=== PATIENT | male | born 2000 | race Two or more races ===

== ENCOUNTER → 2021-10-26 | Outpatient (CLI) | payer SELFPAY ==
--- NOTE | 2021-10-27 09:59 | NUR ---
Notified Ladonna @ Dr Dow's office that patient is covid positive. Ladonna will notify Dr Victor M Payton's MA who is in the [facility] today.
== END ==
LOC: LAB 11:07
PROVIDERS: ATTEND Surgery
DX: U07.1 COVID-19 (principal)
CPT/HCPCS: U0003; U0005

== ENCOUNTER 2022-01-13 07:59 | Day surgery (SDC) | payer OTHER ==
[~2022-01-13] VITALS: Ht 170.2 cm; Wt 88.0 kg
[~2022-01-13 07:59] MED LIST: ACETAMINOPHEN 500 MG TABLET PO PRN; BUPIVACAINE-EPI 0.25% 30 ML VIAL KIT. ONE; HYDROmorphone 2 MG/ML INJ. IVP PRN; IV RINGERS,LACTATED 1000ML 1,000 ML IV SCH; MORPHINE SULFATE 2 MG/ML INJ. IVP PRN; PROCHLORPERAZINE 10 MG/2 ML VIAL. IVP PRN; fentaNYL PF VIAL 100 MCG/2 ML VIAL IVP PRN
[2022-01-13] MEDS ORDERED: ONDANSETRON PF 4 MG/2 ML VIAL. ONE (08:29)
[2022-01-13] MEDS ORDERED: fentaNYL PF VIAL 100 MCG/2 ML VIAL ONE (08:29)
[2022-01-13] MEDS ORDERED: LIDOCAINE 2% PF 5 ML VIAL. ONE (08:29)
[2022-01-13] MEDS ORDERED: PROPOFOL 10 MG/ML (20ML) VIAL. IV ONE (08:29)
[2022-01-13] MEDS ORDERED: FAMOTIDINE 20 MG/2 ML VIAL ONE (08:29)
[2022-01-13] MEDS ORDERED: DEXAMETHASONE SOD PHOS 4 MG/ML VIAL ONE (08:29)
[2022-01-13] MEDS ORDERED: MIDAZOLAM HCL/PF 2 MG/2 ML VIAL. ONE (08:29)
[2022-01-13] MEDS ORDERED: SUCCINYLCHOLINE 200 MG/10 ML VIAL. ONE (08:33)
[2022-01-13 08:37] VITALS: BP 135/74
--- NOTE | 2022-01-13 09:06 | PDOC1 ---
History and Physical Date of Admission Date of Admission DATE: 01/13/22 TIME: 09:03 Identification/Chief Complaint Chief Complaint Pilonidal cyst Source Source: Patient History of Present Illness History of Present Illness 21-year-old male with complaints of a draining wound on his buttocks been present for about 2 years been increasingly having more difficulty with this area Past Medical History Cardiovascular: No pertinent hx Pulmonary: No pertinent hx GI: No pertinent hx Heme/Onc: No pertinent hx Psych: No pertinent hx Rheumatologic: No pertinent hx Infectious disease: No pertinent hx ENT: No pertinent hx Renal/: No pertinent hx Endocrine: No pertinent hx Dermatology: No pertinent hx Past Surgical History Past Surgical History: No pertinent history Family History Family History: No Significant Social History Smoke: No ALCOHOL: rare Drugs: None Current Medications Current Medications Current Medications Fentanyl Citrate (Fentanyl 2ml Vial) 25 mcg PRN Q5MIN PRN IVP MILD PAIN 1-3; Start 01/13/22 at 06:00; Stop 01/14/22 at 05:59 Fentanyl Citrate (Fentanyl 2ml Vial) 50 mcg PRN Q5MIN PRN IVP MODERATE PAIN 4- 6; Start 01/13/22 at 06:00; Stop 01/14/22 at 05:59 Morphine Sulfate (Morphine Sulfate) 1 mg PRN Q10MIN PRN IVP SEVERE PAIN 7-10; Start 01/13/22 at 06:00; Stop 01/14/22 at 05:59 Ringer's Solution 1,000 ml @ 30 mls/hr Q24H IV Last administered on 01/13/22at 08:41; Start 01/13/22 at 06:00; Stop 01/13/22 at 17:59 Hydromorphone HCl (Dilaudid) 0.5 mg PRN Q10MIN PRN IVP SEVERE PAIN 7-10, 2nd CHOICE; Start 01/13/22 at 06:00; Stop 01/14/22 at 05:59 Prochlorperazine Edisylate (Compazine) 5 mg PACU PRN PRN IVP NAUSEA, MRX1; Start 01/13/22 at 06:00; Stop 01/14/22 at 05:59 Acetaminophen (Tylenol) 1,000 mg 1X PREOP PRN PO PRIOR TO PROCEDURE Last administered on 01/13/22at 08:40; Start 01/13/22 at 06:00; Stop 01/13/22 at 18:00 Cefazolin Sodium/ Dextrose 50 ml @ 100 mls/hr 1X PREOP PRN IV PRIOR TO PROCEDURE; Start 01/13/22 at 06:00; Stop 01/13/22 at 18:00 Bupivacaine HCl/ Epinephrine Bitart (Sensorcain-Epi 0.25% Kit) 30 ml STK-MED ONCE .ROUTE ; Start 01/13/22 at 07:13; Stop 01/13/22 at 07:14; Status DC Lidocaine HCl (Lidocaine Pf 2% Vial) 5 ml STK-MED ONCE .ROUTE ; Start 01/13/22 at 08:29; Stop 01/13/22 at 08:29; Status DC Propofol (Diprivan) 200 mg STK-MED ONCE IV ; Start 01/13/22 at 08:29; Stop 01/13/22 at 08:29; Status DC Famotidine (Pepcid Vial) 20 mg STK-MED ONCE .ROUTE ; Start 01/13/22 at 08:29; Stop 01/13/22 at 08:29; Status DC Ondansetron HCl (Zofran) 4 mg STK-MED ONCE .ROUTE ; Start 01/13/22 at 08:29; Stop 01/13/22 at 08:29; Status DC Dexamethasone Sodium Phosphate (Decadron) 4 mg STK-MED ONCE .ROUTE ; Start 01/13/22 at 08:29; Stop 01/13/22 at 08:29; Status DC Fentanyl Citrate (Fentanyl 2ml Vial) 100 mcg STK-MED ONCE .ROUTE ; Start 01/13/22 at 08:29; Stop 01/13/22 at 08:29; Status DC Midazolam HCl (Versed) 2 mg STK-MED ONCE .ROUTE ; Start 01/13/22 at 08:29; Stop 01/13/22 at 08:29; Status DC Succinylcholine Chloride (Anectine) 200 mg STK-MED ONCE .ROUTE ; Start 01/13/22 at 08:33; Stop 01/13/22 at 08:33; Status DC Allergies Allergies: Coded Allergies: No Known Drug Allergies (Unverified , 01/13/22) ROS General: No: Chills, Night Sweats, Fatigue, Malaise, Appetite, Other PSYCHOLOGICAL ROS: No: Anxiety, Behavioral Disorder, Concentration difficultie, Decreased libido, Depression, Disorientation, Hallucinations, Hostility, Irritablity, Memory difficulties, Mood Swings, Obsessive thoughts, Physical abuse, Sexual abuse, Sleep disturbances, Suicidal ideation, Other Eyes: No Blurry vision, No Decreased vision, No Double vision, No Dry eyes, No Excessive tearing, No Eye Pain, No Itchy Eyes, No Loss of vision, No Photophobia, No Scotomata, No Uses contacts, No Uses glasses, No Other HEENT: No: Heacaches, Visual Changes, Hearing change, Nasal congestion, Nasal discharge, Oral lesions, Sinus pain, Sore Throat, Epistaxis, Sneezing, Snoring, Tinnitus, Vertigo, Vocal changes, Other ALLERGY AND IMMUNOLOGY: No: Hives, Insect Bite Sensitivity, Itchy/Watery Eyes, Nasal Congestion, Post Nasal Drip, Seasonal Allergies, Other Hematological and Lymphatic: No: Bleeding Problems, Blood Clots, Blood Transfusions, Brusing, Night Sweats, Pallor, Swollen Lymph Nodes, Other ENDOCRINE: No: Breast Changes, Galactorrhea, Hair Pattern Changes, Hot Flashes, Malaise/lethargy, Mood Swings, Palpitations, Polydipsia/polyuria, Skin Changes, Temperature Intolerance, Unexpected Weight Changes, Other Respiratory: No: Cough, Hemoptysis, Orthopnea, Pleuritic Pain, Shortness of breath, SOB with excertion, Sputum Changes, Stridor, Tachypnea, Wheezing, Other Cardiovascular: No Chest Pain, No Palpitations, No Orthopnea, No Paroxysmal Noc. Dyspnea, No Edema, No Lt Headedness, No Other Gastrointestinal: No Nausea, No Vomiting, No Abdominal Pain, No Diarrhea, No Constipation, No Melena, No Hematochezia, No Other Genitourinary: No Dysuria, No Frequency, No Incontinence, No Hematuria, No Retention, No Discharge, No Urgency, No Pain, No Flank Pain, No Other, No , No , No , No , No , No , No Musculoskeletal: No Gait Disturbance, No Joint Pain, No Joint Stiffness, No Joint Swelling, No Muscle Pain, No Muscular Weakness, No Pain In:, No Swelling In:, No Other Neurological: No Behavorial Changes, No Bowel/Bladder ControlChng, No Confusion, No Dizziness, No Gait Disturbance, No Headaches, No Impaired Coord/balance, No Memory Loss, No Numbness/Tingling, No Seizures, No Speech Problems, No Tremors, No Visual Changes, No Weakness, No Other Skin: Yes Other (Chronically draining wound of the buttocks) Physical Exam General: Alert, Oriented X3, Cooperative, No acute distress HEENT: Atraumatic, PERRLA, EOMI Lungs: Clear to auscultation, Normal air movement Heart: RRR, no murmurs Abdomen: Normal bowel sounds, Soft, No tenderness Rectal Exam: not examined Extremities: No edema Skin: Other (Pilonidal cyst of the buttocks cleft with a fistulous tract) Neuro: Normal speech Psych/Mental Status: Mental status NL Vitals Vitals Vital Signs Date Time Temp Pulse Resp B/P (MAP) Pulse Ox O2 Delivery O2 Flow Rate FiO2 01/13/22 08:39 97.4 85 20 135/74 99 Room Air 97.4 VTE Prophylaxis Ordered VTE Prophylaxis Devices: Yes VTE Pharmacological Prophylaxi: Contraindicated Assessment/Plan Assessment/Plan Pilonidal cyst with fistulous tract plan excision Justifications for Admission Other Justification HOWIE BIGGS MD Jan 13, 2022 09:06
[2022-01-13] MEDS ORDERED: KETOROLAC 30 MG/ML VIAL. ONE (09:54)
--- NOTE | 2022-01-13 10:16 | PDOC4 ---
Operative Note Operative Note Date: January 132021 at 10:13 AM Preoperative diagnosis: Pilonidal cyst with fistula Postoperative diagnosis: Same Procedure: Pilonidal cystectomy with fistulectomy Surgeon: Victor M Specimen: Pilonidal cyst Dictation: Patient is a 21-year-old male is complained of a draining area on his buttocks for several years and multiple episodes of infections. Procedure of pilonidal cystectomy with unroofing of the fistula was explained to the patient detail risk benefits were also discussed including bleeding infection alternatives this procedure also discussed with patient who seemed to understand and gave a verbal written consent to have the procedure performed. Patient was taken to the operating room placed in supine position general anesthesia was initiated once patient was sleeping intubated placed in the prone positioning an d his buttocks was prepped and draped in usual sterile fashion using Betadine scrub and solution. An area around the pilonidal cyst was injected with quarter percent Marcaine with epinephrine incision was made with a 10 blade scalpel elliptically around the cyst opening. This was excised sharply with electrocautery all the way down to the fascia. Using a probe the fistulous trac t was probed to the surface of the skin this was opened with a 10 blade scalpel use electrocautery right hemostasis fully open the tract. The tract was curetted of the epithelial tissue. The wound was then closed with a deep running 0 Vicryl the fistulous tract was left open a subcutaneous layer of 3-0 Vicryl was then used and 3-0 nylon horizontal mattress sutures were used to cl ose the pilonidal cystectomy incision. The fistulous tract was packed with half-inch Nu Gauze. The wound was then dressed with 4 x 4's ABD and mesh pants. Patient was repositioned in the supine positioning awakened and extubated operating room taken recovery in stable condition all sponge instrument needle counts listed as correct estimated blood loss 20 mL HOWIE BIGGS MD Jan 13, 2022 10:16
[2022-01-13] MEDS ORDERED: OXYC-325 PO (10:18)
--- NOTE | 2022-01-13 10:19 | DISCH ---
DISCHARGE INSTRUCTIONS Condition on Discharge Condition on Discharge: Stable Activity After Discharge Activity Instructions for Disc: Avoid exertion Other activity instructions: No strenuous exercise for 2 weeks Diet after Discharge Diet after Discharge: Regular Wound Incision Care Wound/Incision Care: Change dressing (Daily) Other wound/incision instructi: May shower in 24 hours, packing needs to be changed daily Contacting the after DC Call your doctor for: If your condition worsens Follow-Up Follow up with: Dr. Biggs in 2 weeks HOWIE BIGGS MD Jan 13, 2022 10:19
[2022-01-13] MEDS ORDERED: oxyCODONE/APAP 5/325 1 TAB TABLET PO ONE (10:45)
[2022-01-13 11:01] VITALS: BP 135/71
--- NOTE | 2022-01-15 17:15 | PATHOLOGY ---
[facility] Accession Number: [id number] . 01 Material submitted: . gluteal cleft - PILONDIAL CYST . 02 Diagnosis: Skin and subcutaneous tissue, pilonidal cystectomy: - Pilonidal sinus disease showing scarring and chronic inflammation. ([facility]; 01/15/2022) [facility] 01/15/2022 0832 Local . 02 Comment: There is no cyst or abscess identified. ([facility]; 01/15/2022) . 02 Electronically signed: . Raymond Hawley MD, Pathologist NPI- [id number] . 01 Gross description: . The specimen is received in formalin, labeled "Shepard, Jean Claude, pilonidal cyst". Received is an irregularly shaped excision of skin with underlying soft tissue measuring 4.7 x 2.3 x 1.9 cm. The epidermal surface is dark simmons with a linear crease measuring 3.0 x 0.1 cm with no grossly distinct nodules or lesions. The surgical margin is inked green. Sectioning reveals pale simmons-pink to light simmons-yellow, fibrous, and dusky cut surfaces. The specimen is serially sectioned and submitted representatively in cassettes A1-A2.([facility]; 01/14/2022) [facility] 01/14/2022 1407 Local . 02 Pathologist provided ICD-10: L05.91 . 02 CPT . 972766 Specimen Comment: A courtesy copy of this report has been sent to [phone] Specimen Comment: Report sent to Specimen Comment: A duplicate report has been generated due to demographic updates. Performed at: 01 [facility] [address], [place] [id number] MD Juan Ventura MD Phone: [phone] Performed at: [address] [id number] MD Raymond Hawley MD Phone: [phone]
== END 2022-01-13 11:40 | disposition home or self-care (01) ==
LOC: SURG 07:59
PROVIDERS: ATTEND Surgery
DX: L05.91 Pilonidal cyst without abscess (principal); L98.8 Other specified disorders of the skin and subcutaneous tissue; Z79.899 Other long term (current) drug therapy; Z98.890 Other specified postprocedural states
CPT/HCPCS: 11771; 46270; 88304; A4209; A4930; A6253; A6402; A6407; J0330; J0690; J1100; J1885; J2250; J2405; J2704; J3010; J3490